=== PATIENT | male | born 1960 | race Hispanic/Latino ===

== ENCOUNTER 2017-06-10 21:36 | Emergency (ER) | payer BC ==
[~2017-06-10 21:36] MED LIST: Iopamidol 370 76% 100 ML VIAL ONE
--- NOTE | 2017-06-11 00:02 | ULT ---
LEFT LOWER EXTREMITY VENOUS DUPLEX ULTRASOUND INCLUDING COLOR AND SPECTRAL DOPPLER IMAGING. 06/10/17 HISTORY: 57-year-old male with knee pain and edema. Exam performed from groin to ankle including the greater saphenous, common femoral, superficial femo ral, profunda femoral, popliteal, trifurcation, and posterior tibial vein regions. There is intralum inal thrombus within the popliteal vein and the posterior tibial vein. The common femoral and superf icial femoral veins appear patent. IMPRESSION: Evidence for deep venous thrombosis involving the popliteal vein and the upper mid posterior tibial vein. Findings were discussed with Dr. Anguiano at 11:57 p.m. Code CR POS: [facility]
[2017-06-11] MEDS ORDERED: Ketorolac Tromethamine 30 MG/ML VIAL ONE (00:11)
[2017-06-11] MEDS ORDERED: Enoxaparin Sodium 100 MG/ML SYRINGE ONE (00:11)
[2017-06-11 00:26] LABS: PTT 31.6 SEC (22.9-36.1); Prothrombin Time 14.3 SEC (12.0-14.7)
[2017-06-11 00:40] LABS: #Basophils 0.1 thou/uL (0.0-0.2); #Eosinphils 0.2 thou/uL (0.0-0.7); #Monocytes 0.8 thou/uL (0.11-0.59); #Neutrophils 5.3 thou/uL (1.40-6.50); %Basophils 1.5 % (0.0-1.0); %Eosinophils 2.4 % (0.0-10.0); %Lymphocytes 23.6 % (21.0-51.0); %Monocytes 9.3 % (0.0-10.0); Hematocrit 44.7 % (42.0-52.0); Mean Platelet Volume 7.9 fL (7.4-10.4); Red Blood Cell (RBC) Count 5.08 mill/uL (4.70-6.10); White Blood Cell (WBC) Count 8.4 thou/uL (4.8-10.8)
[2017-06-11 00:50] LABS: Anion Gap 13 mmol/L (10-20); BUN (Urea Nitrogen) 19 mg/dL (8.4-25.7); Calc. Creatinine Clearance 0 mL/min (70-130); Calcium 9.4 mg/dL (7.8-10.44); Carbon Dioxide 26 mmol/L (22-29); Chloride 107 mmol/L (98-107); Estimated GFR-MDRD 72
[2017-06-11] MEDS ORDERED: Rivaroxaban 10 MG TAB ONE (02:36)
--- NOTE | 2017-06-11 09:22 | CT ---
PRELIMINARY REPORT/[facility]/EMERGENCY AFTER HOURS PROCEDURE: Addendum created by Otf Dugan MD on 06/11/2017 1:59 AM Central Time ([place] \T\ [facility]) CRITICAL RESULT: The study was discussed on the telephone with [SHERINE Garcia] on 06/11/2017 1:58 A M CDT. The results were understood and acknowledged. Initial Report created on 06/11/2017 1:57 AM Central Time ([place] \T\ [facility]) EXAM: CT Angiography Chest With Intravenous Contrast CLINICAL HISTORY: 57 years old, male; Signs and symptoms and abnormal findings; Abnormal diagnostic tests; Elevated d- dimer; Other: Low o2 sats on room air; Additional info: Left leg pain behind knee for two days, posi tive ult for left leg dvt earlier tonight, no complaints of SOB or chest pain, highly elevated ddime r 13.97 TECHNIQUE: Axial computed tomographic angiography images of the chest with intravenous contrast using pulmonary embolism protocol. All CT scans at this facility use one or more dose reduction techniques, viz.: a utomated exposure control; ma/kV adjustment per patient size (including targeted exams where dose is matched to indication; i.e. head); or iterative reconstruction technique. Coronal reformatted images were created and reviewed. CONTRAST: 90 mL of [id number] administered intravenously. COMPARISON: No relevant prior studies available. FINDINGS: Pulmonary arteries: Multiple lobar and segmental nonocclusive pulmonary emboli bilaterally Aorta: No thoracic aortic aneurysm. No dissection. Lungs: No mass or air space pneumonia. Pleural space: Unremarkable. No significant effusion. No pneumothorax. Heart: No cardiomegaly or significant pericardial effusion. Bones/joints: No acute fracture. No dislocation. Soft tissues: The soft tissues of the axilla, neck and chest wall are unremarkable. Lymph nodes: No enlarged lymph nodes. Liver: Simple hepatic cysts. Upper abdomen: The visualized superior portions of the abdomen are unremarkable. IMPRESSION: Multiple lobar and segmental nonocclusive pulmonary emboli without CT evidence of RIGHT heart strain . There are additional nonemergent findings discussed in the body of the report. Thank you for allowing us to participate in the care of your patient. Dictated and Authenticated by: Otf Dugan MD 06/11/2017 1:57 AM Central Time ([place] \T\ [facility]) FINAL REPORT CT ANGIOGRAM OF THE CHEST: Date: 06/11/17 HISTORY: Two days of worsening chest pain. Patient was on a 3 hour car trip as a passenger. Positive left leg deep venous thrombosis. COMPARISON: None. TECHNIQUE: CT angiogram of the chest is performed in the axial plane. Coronal and bilateral oblique three-dimen sional reformatted images are submitted for interpretation. FINDINGS/IMPRESSION: This report is in agreement with the preliminary report by [facility]. There are bilateral lower lobe loba r, segmental, and subsegmental filling defects with evidence for pulmonary emboli. Hepatic cyst is n oted. POS: [facility]
== END 2017-06-11 03:19 | disposition home or self-care (01) ==
LOC: SCSER 21:36
DX: I26.99 Other pulmonary embolism without acute cor pulmonale (principal); I82.402 Acute embolism and thrombosis of unspecified deep veins of left lower extremity; E78.5 Hyperlipidemia, unspecified; Z79.899 Other long term (current) drug therapy
CPT/HCPCS: 71275; 80048; 84153; 85025; 85379; 85610; 85730; 96372; 96374; J1650; J1885